=== PATIENT | male | born 1990 | race Caucasian/White ===

== ENCOUNTER 2023-03-29 05:32 | Inpatient (IN) | payer OTHER ==
[~2023-03-29] VITALS: Ht 190.5 cm; Wt 85.3 kg
[2023-03-29 06:30] LABS: BASOPHILS % (AUTO) 0.2 % (0.0-2.0); EOSINOPHILS % (AUTO) 0.1 % (1.0-6.0); HEMATOCRIT 28.2 % (41-53); HEMOGLOBIN 9.5 g/dL (13.5-17.5); LYMPHOCYTES # (AUTO) 0.4 K/uL (1.0-4.8); LYMPHOCYTES % (AUTO) 2.4 % (22.0-44.0); MEAN CORPUSCULAR HEMOGLOBIN 31.9 pg (26.0-34.0); MEAN CORPUSCULAR HGB CONC 33.8 G/dL (31.0-37.0); MEAN CORPUSCULAR VOLUME 94 fL (80-100); MONOCYTES # (AUTO) 0.9 K/uL (0.1-1.0); MONOCYTES % (AUTO) 5.1 % (2.0-9.0); NEUTROPHILS # (AUTO) 16.1 K/uL (1.8-7.7); PLATELET COUNT (AUTO) 138 K/uL (150-450); RED BLOOD CELL COUNT(AUTO) 2.98 MIL/uL (4.50-5.90); RED CELL DISTRIBUTION WIDTH 14.7 % (11.5-14.5)
[2023-03-29 06:42] LABS: NEUTROPHILS % (AUTO) 92.2 % (40.0-70.0)
[2023-03-29 06:48] LABS: ALANINE AMINOTRANSFERASE 107 U/L (12-78); ALBUMIN 3.4 g/dL (3.4-5.0); ALKALINE PHOSPHATASE 122 U/L (46-116); ANION GAP 15 mmol/L (8-16); ASPARTATE AMINOTRANSFERASE 215 U/L (15-37); BILIRUBIN,TOTAL 1.6 mg/dL (0.1-1.0); CALCIUM, TOTAL 8.4 mg/dL (8.8-10.5); CARBON DIOXIDE 29 mmol/L (22-29); CHLORIDE 87 mmol/L (98-107); CREATININE 1.14 mg/dL (0.60-1.30); GLOMERULAR FILTR. RATE CALC > 60 mL/min (>60); GLUCOSE,RANDOM 66 mg/dL (70-110); SODIUM SERUM 131 mmol/L (136-145); TOTAL PROTEIN, SERUM 7.3 g/dL (6.4-8.2)
[2023-03-29 06:53] LABS: POTASSIUM 2.9 mmol/L (3.5-5.1)
[2023-03-29] MEDS ORDERED: LORazepam 2 MG/ML VIAL IVP ONE ×2 (07:00→10:15)
[2023-03-29] MEDS ORDERED: POTASSIUM CHLORIDE 40 MEQ in SODIUM CHLORIDE 0.9% 1,000 ML IV ONE ×2 (07:00→18:45)
[2023-03-29] MEDS ORDERED: MAGNESIUM SULFATE 2 GM, MVI, ADULT NO.1 WITH VIT K 10 ML, THIAMINE 100 MG, FOLIC ACID 1... IV ONE ×5 (07:30)
[2023-03-29 07:43] LABS: AMPHET/METH SCREEN,URINE NEGATIVE (NEGATIVE); BARBITURATE SCREEN, URINE NEGATIVE (NEGATIVE); BENZODIAZEPINES SCREEN,URINE NEGATIVE (NEGATIVE); CANNABINOID SCREEN,URINE NEGATIVE (NEGATIVE); COCAINE SCREEN,URINE NEGATIVE (NEGATIVE); METHADONE SCREEN, URINE NEGATIVE (NEGATIVE); OPIATE SCREEN,URINE NEGATIVE (NEGATIVE); PHENCYCLIDINE SCREEN,URINE NEGATIVE (NEGATIVE)
[2023-03-29] MEDS ORDERED: DiphenhydrAMINE HCL 25 MG CAPSULE PO ONE (10:30)
[2023-03-29] MEDS ORDERED: HALOPERIDOL 5 MG TABLET PO ONE (10:30)
[2023-03-29] MEDS ORDERED: DIAZEPAM 5 MG/ML 2 ML SYRINGE IVP ONE (12:00)
[2023-03-29 12:42] LABS: COVID AG,FIA SOURCE NASAL SWAB
[2023-03-29] MEDS ORDERED: SODIUM CHLORIDE 0.9% 1,000 ML IV ONE (13:00)
[2023-03-29 14:57] LABS: ABG BASE EXCESS 0.9 mmol/L (-2.0-3.0); ABG CARBOXYHEMOGLOBIN 0.8 % (0.0-1.5); ABG HCO3 25.5 mmol/L (22.0-26.0); ABG METHEMOGLOBIN 0.2 % (0.0-1.5); ABG OXYGEN CONTENT 12.5 mL/dL (15.0-23.0); ABG OXYGEN SATURATION 93.9 % (95.0-98.0); ABG PCO2 33 mmHg (35-45); ABG PH 7.484 (7.350-7.450); ABG TOTAL HEMOGLOBIN 9.5 G/dL (12.0-18.0); PO2, ARTERIAL BG 79.5 mmHg (92.0-100.0); SITE, BLOOD GAS RT BRACHIAL; SOURCE, BLOOD GAS ARTERIAL; TEMPERATURE, FAHRENHEIT, BG 99.5 FAHREN (96.0-98.6)
[2023-03-29 14:58] LABS: O2 DEVICE,BLOOD GAS ROOM AIR (ROOM AIR)
[2023-03-29 15:22] LABS: INR 1.1 (0.9-1.1); PROTHROMBIN TIME 11.5 SEC (9.4-11.6)
[2023-03-29 15:51] LABS: APPEARANCE,URINE CLEAR (CLEAR); BILIRUBIN,URINE NEGATIVE (NEGATIVE); GLUCOSE, URINE (UA) NEGATIVE (NEGATIVE); KETONES,URINE 40-60 mg/dL (NEGATIVE); LEUKOCYTE ESTERASE ,URINE NEGATIVE (NEGATIVE); NITRATE,URINE NEGATIVE (NEGATIVE); OCCULT BLOOD,URINE TRACE (NEGATIVE); PROTEIN,URINE 30-70 mg/dL (NEGATIVE); SPECIFIC GRAVITIY, URINE 1.028 (1.003-1.030); UROBILINOGEN,URINE <=1.0 mg/dL (<=1.0)
[2023-03-29 16:06] LABS: BACTERIA,URINE Rare /HPF (None Seen); WBC,URINE 0-2 /HPF (0-5)
[2023-03-29 16:07] LABS: SQUAMOUS EPITHELIAL CELL,UR Rare /LPF (None Seen)
[2023-03-29] MEDS ORDERED: DEXMEDETOMIDINE HCL 400 MCG in SODIUM CHLORIDE 0.9% 96 ML IV PRN (16:45)
[2023-03-29] MEDS ORDERED: MAGNESIUM HYDROXIDE SUSPENSION 30 ML UDCUP PO PRN (18:00)
[2023-03-29] MEDS ORDERED: HYDROCODONE/ACETAMINOPHEN 5-325 MG TABLET PO PRN (18:00)
[2023-03-29] MEDS ORDERED: MORPHINE SULFATE 2 MG/ML SYRINGE IVP PRN (18:00)
[2023-03-29] MEDS ORDERED: MAGNESIUM SULFATE 4 GM/WATER 100 ML IV PRN (18:00)
[2023-03-29] MEDS ORDERED: MAGNESIUM OXIDE 400 MG TABLET PO PRN (18:00)
[2023-03-29] MEDS ORDERED: ONDANSETRON HCL 4 MG/2 ML VIAL IVP PRN (18:00)
[2023-03-29] MEDS ORDERED: MAGNESIUM SULFATE 2 GM/WATER 50 ML IV PRN (18:00)
[2023-03-29] MEDS ORDERED: BISACODYL 10 MG RECTAL RECTAL SUPPOSITORY PR PRN (18:00)
[2023-03-29] MEDS ORDERED: ALBUTEROL SULFATE 2.5 MG/0.5 ML NEB SOLUTION NEB PRN (18:00)
[2023-03-29] MEDS ORDERED: ACETAMINOPHEN 325 MG TABLET PO PRN (18:00)
[2023-03-29] MEDS ORDERED: POTASSIUM CHLORIDE 20 MEQ ER TABLET PO PRN (18:00)
[2023-03-29] MEDS ORDERED: IPRATROPIUM BROMIDE 0.5 MG/2.5 ML NEB SOLUTION NEB PRN (18:00)
[2023-03-29] MEDS ORDERED: ZOLPIDEM TARTRATE 5 MG TABLET PO PRN (18:00)
[2023-03-29 18:18] LABS: LACTIC ACID 0.5 mmol/L (0.4-2.0)
[2023-03-29 18:27] LABS: ALANINE AMINOTRANSFERASE 90 U/L (12-78); ALBUMIN 2.7 g/dL (3.4-5.0); ALKALINE PHOSPHATASE 113 U/L (46-116); ANION GAP 13 mmol/L (8-16); ASPARTATE AMINOTRANSFERASE 158 U/L (15-37); CALCIUM, TOTAL 7.9 mg/dL (8.8-10.5); CARBON DIOXIDE 27 mmol/L (22-29); CHLORIDE 94 mmol/L (98-107); GLOMERULAR FILTR. RATE CALC > 60 mL/min (>60); GLUCOSE,RANDOM 69 mg/dL (70-110); SODIUM SERUM 134 mmol/L (136-145); TOTAL PROTEIN, SERUM 6.7 g/dL (6.4-8.2)
[2023-03-29 18:29] LABS: POTASSIUM 2.6 mmol/L (3.5-5.1)
[2023-03-29] MEDS: POTASSIUM CHL 10 MEQ/WATER 50 ML IV PRN ×4 (18:49→22:48)
[2023-03-29] MEDS: SODIUM CHLORIDE 0.9% 1,000 ML IV SCH (18:49)
[2023-03-29] MEDS: DIAZEPAM 5 MG/ML 2 ML SYRINGE IVP SCH ×2 (19:41→23:38)
[2023-03-29 20:00] VITALS: BP 132/58; PULSE 78; RESP 17; TEMP 100.5
[2023-03-29] MEDS: DOCUSATE SODIUM 100 MG CAPSULE PO SCH (21:00)
[2023-03-29] MEDS ORDERED: SODIUM CHLORIDE 0.9% 250 ML IV ONE (21:20)
[2023-03-29] MEDS: 1: MAGNESIUM SULFATE 2 GM, MVI, ADULT NO.1 WITH VIT K 10 ML, THIAMINE 100 MG, FOLIC ACID IV SCH ×5 (21:27)
[2023-03-29] MEDS: HEPARIN SODIUM,PORCINE 5,000 UNITS/ML VIAL SQ SCH (23:38)
[2023-03-30] VITALS (7 sets, daily range): BP systolic 122–142; BP diastolic 42–103; PULSE 77–101; RESP 13–45; TEMP 98.6–99.9
[2023-03-30] MEDS: DIAZEPAM 5 MG/ML 2 ML SYRINGE IVP PRN ×2 (01:47→05:35)
[2023-03-30] MEDS: DIAZEPAM 5 MG/ML 2 ML SYRINGE IVP SCH ×2 (03:46→08:00)
[2023-03-30 05:21] LABS: BASOPHILS % (AUTO) 0.6 % (0.0-2.0); EOSINOPHILS % (AUTO) 0.3 % (1.0-6.0); HEMATOCRIT 29.4 % (41-53); HEMOGLOBIN 9.5 g/dL (13.5-17.5); LYMPHOCYTES # (AUTO) 0.6 K/uL (1.0-4.8); LYMPHOCYTES % (AUTO) 3.3 % (22.0-44.0); MEAN CORPUSCULAR HEMOGLOBIN 31.5 pg (26.0-34.0); MEAN CORPUSCULAR HGB CONC 32.4 G/dL (31.0-37.0); MEAN CORPUSCULAR VOLUME 97 fL (80-100); MONOCYTES # (AUTO) 1.1 K/uL (0.1-1.0); MONOCYTES % (AUTO) 5.8 % (2.0-9.0); NEUTROPHILS # (AUTO) 16.4 K/uL (1.8-7.7); PLATELET COUNT (AUTO) 151 K/uL (150-450); RED BLOOD CELL COUNT(AUTO) 3.03 MIL/uL (4.50-5.90); RED CELL DISTRIBUTION WIDTH 15.1 % (11.5-14.5)
[2023-03-30 05:36] LABS: ALANINE AMINOTRANSFERASE 65 U/L (12-78); ALBUMIN 2.4 g/dL (3.4-5.0); ALKALINE PHOSPHATASE 105 U/L (46-116); ANION GAP 12 mmol/L (8-16); ASPARTATE AMINOTRANSFERASE 127 U/L (15-37); BILIRUBIN,TOTAL 1.1 mg/dL (0.1-1.0); CALCIUM, TOTAL 7.9 mg/dL (8.8-10.5); CARBON DIOXIDE 25 mmol/L (22-29); CHLORIDE 97 mmol/L (98-107); CREATININE 0.57 mg/dL (0.60-1.30); GLOMERULAR FILTR. RATE CALC > 60 mL/min (>60); GLUCOSE,RANDOM 67 mg/dL (70-110); SODIUM SERUM 134 mmol/L (136-145); TOTAL PROTEIN, SERUM 6.2 g/dL (6.4-8.2)
[2023-03-30 05:40] LABS: POTASSIUM 2.8 mmol/L (3.5-5.1)
[2023-03-30] MEDS: POTASSIUM CHL 10 MEQ/WATER 50 ML IV PRN ×7 (05:44→19:43)
[2023-03-30] MEDS: SODIUM CHLORIDE 0.9% 1,000 ML IV SCH (07:50)
[2023-03-30] MEDS: HEPARIN SODIUM,PORCINE 5,000 UNITS/ML VIAL SQ SCH ×3 (08:00→23:54)
[2023-03-30] MEDS: PANTOPRAZOLE SODIUM 40 MG/VIAL IVP SCH (08:01)
[2023-03-30] MEDS: DOCUSATE SODIUM 100 MG CAPSULE PO SCH ×2 (08:02→19:57)
[2023-03-30] MEDS: 1: MAGNESIUM SULFATE 2 GM, MVI, ADULT NO.1 WITH VIT K 10 ML, THIAMINE 100 MG, FOLIC ACID IV SCH ×5 (09:33)
[2023-03-30] MEDS ORDERED: LORazepam 2 MG/ML VIAL IVP PRN (10:30)
[2023-03-30] MEDS: ChlordiazePOXIDE HCL 10 MG CAPSULE PO SCH ×2 (16:00→23:54)
[2023-03-31] VITALS (9 sets, daily range): BP systolic 128–176; BP diastolic 62–103; PULSE 77–110; RESP 16–30; TEMP 98.1–99.5
[2023-03-31 05:46] LABS: ANION GAP 6 mmol/L (8-16); CALCIUM, TOTAL 8.8 mg/dL (8.8-10.5); CARBON DIOXIDE 28 mmol/L (22-29); CHLORIDE 99 mmol/L (98-107); CREATININE 0.51 mg/dL (0.60-1.30); GLOMERULAR FILTR. RATE CALC > 60 mL/min (>60); GLUCOSE,RANDOM 136 mg/dL (70-110); SODIUM SERUM 133 mmol/L (136-145)
[2023-03-31 05:47] LABS: BASOPHILS % (AUTO) 0.5 % (0.0-2.0); HEMATOCRIT 27.6 % (41-53); HEMOGLOBIN 8.9 g/dL (13.5-17.5); LYMPHOCYTES # (AUTO) 0.9 K/uL (1.0-4.8); LYMPHOCYTES % (AUTO) 6.7 % (22.0-44.0); MEAN CORPUSCULAR HEMOGLOBIN 31.1 pg (26.0-34.0); MEAN CORPUSCULAR HGB CONC 32.3 G/dL (31.0-37.0); MEAN CORPUSCULAR VOLUME 96 fL (80-100); MONOCYTES % (AUTO) 8.1 % (2.0-9.0); NEUTROPHILS # (AUTO) 10.8 K/uL (1.8-7.7); NEUTROPHILS % (AUTO) 83.7 % (40.0-70.0); PLATELET COUNT (AUTO) 174 K/uL (150-450); RED BLOOD CELL COUNT(AUTO) 2.87 MIL/uL (4.50-5.90); RED CELL DISTRIBUTION WIDTH 14.8 % (11.5-14.5)
[2023-03-31] MEDS: POTASSIUM CHL 10 MEQ/WATER 50 ML IV PRN ×4 (05:53→11:52)
[2023-03-31] MEDS ORDERED: LORazepam 2 MG/ML VIAL IVP PRN (07:45)
[2023-03-31] MEDS: ChlordiazePOXIDE HCL 10 MG CAPSULE PO SCH ×2 (08:52→16:35)
[2023-03-31] MEDS: PANTOPRAZOLE SODIUM 40 MG/VIAL IVP SCH (08:52)
[2023-03-31] MEDS: HEPARIN SODIUM,PORCINE 5,000 UNITS/ML VIAL SQ SCH ×2 (08:52→16:35)
[2023-03-31] MEDS: DOCUSATE SODIUM 100 MG CAPSULE PO SCH ×2 (08:52→19:48)
[2023-03-31] MEDS ORDERED: MULTIVITAMINS WITH MINERALS, THERAPEUTIC TABLET PO SCH (09:00)
[2023-04-01 00:03] VITALS: BP 133/81; PULSE 85; RESP 17; TEMP 99.2
[2023-04-01] MEDS: HEPARIN SODIUM,PORCINE 5,000 UNITS/ML VIAL SQ SCH (00:10)
[2023-04-01] MEDS: ChlordiazePOXIDE HCL 10 MG CAPSULE PO SCH (00:10)
[2023-04-01 04:04] VITALS: BP 131/90; PULSE 92; RESP 19; TEMP 98.9
== END 2023-04-01 05:47 | disposition left against medical advice (07) | DRG 52 ==
LOC: EMS 05:32 → ICU 18:26 → 5S 03-31 16:41
PROVIDERS: ADMIT Hospitalist; ATTEND Hospitalist
DX: G92.9 Unspecified toxic encephalopathy (principal); F10.231 Alcohol dependence with withdrawal delirium; M62.82 Rhabdomyolysis; E44.0 Moderate protein-calorie malnutrition; E87.1 Hypo-osmolality and hyponatremia; D63.8 Anemia in other chronic diseases classified elsewhere; E87.6 Hypokalemia; F12.90 Cannabis use, unspecified, uncomplicated; F32.A Depression, unspecified; Z20.822 Contact with and (suspected) exposure to COVID-19; F90.9 Attention-deficit hyperactivity disorder, unspecified type; I10 Essential (primary) hypertension; F20.9 Schizophrenia, unspecified; Z53.29 Procedure and treatment not carried out because of patient's decision for other reasons; F17.210 Nicotine dependence, cigarettes, uncomplicated; Z78.1 Physical restraint status; Z68.23 Body mass index [BMI] 23.0-23.9, adult
CPT/HCPCS: 36600; 70450; 71045; 80048; 80053; 80307; 81001; 82140; 82550; 82805; 83605; 83735; 84132; 84145; 85025; 85610; 85730; 87040; 87081; 93005; 99291; C9113; G0378; G0480; J1644; J2060; J3411; J3475; J3480; J3490; J7030; J7050; Q9967; 36415-L1; 36415-TC

== ENCOUNTER 2023-05-19 02:26 | Inpatient (IN) | payer MEDICAID, OTHER ==
[~2023-05-19] VITALS: Ht 190.5 cm; Wt 79.8 kg
[2023-05-19] MEDS ORDERED: HALOPERIDOL LACTATE 5 MG/ML VIAL IM ONE (03:15)
[2023-05-19] MEDS ORDERED: LORazepam 2 MG/ML VIAL IM ONE (03:15)
[2023-05-19] MEDS ORDERED: DiphenhydrAMINE HCL 50 MG/ML VIAL IM ONE (03:15)
[2023-05-19 03:45] LABS: AMPHET/METH SCREEN,URINE NEGATIVE (NEGATIVE); BARBITURATE SCREEN, URINE NEGATIVE (NEGATIVE); BENZODIAZEPINES SCREEN,URINE NEGATIVE (NEGATIVE); CANNABINOID SCREEN,URINE NEGATIVE (NEGATIVE); COCAINE SCREEN,URINE NEGATIVE (NEGATIVE); METHADONE SCREEN, URINE NEGATIVE (NEGATIVE); OPIATE SCREEN,URINE NEGATIVE (NEGATIVE); PHENCYCLIDINE SCREEN,URINE NEGATIVE (NEGATIVE)
[2023-05-19] MEDS ORDERED: HALOPERIDOL 5 MG TABLET PO PRN (03:45)
[2023-05-19] MEDS ORDERED: ZOLPIDEM TARTRATE 10 MG TABLET PO PRN (03:45)
[2023-05-19 04:01] LABS: BASOPHILS % (AUTO) 0.6 % (0.0-2.0); EOSINOPHILS % (AUTO) 1.9 % (1.0-6.0); HEMATOCRIT 32.5 % (41-53); HEMOGLOBIN 10.7 g/dL (13.5-17.5); LYMPHOCYTES # (AUTO) 2.1 K/uL (1.0-4.8); LYMPHOCYTES % (AUTO) 28.5 % (22.0-44.0); MEAN CORPUSCULAR HEMOGLOBIN 29.2 pg (26.0-34.0); MEAN CORPUSCULAR VOLUME 88 fL (80-100); MONOCYTES # (AUTO) 0.4 K/uL (0.1-1.0); MONOCYTES % (AUTO) 5.4 % (2.0-9.0); NEUTROPHILS # (AUTO) 4.7 K/uL (1.8-7.7); NEUTROPHILS % (AUTO) 63.6 % (40.0-70.0); PLATELET COUNT (AUTO) 242 K/uL (150-450); RED BLOOD CELL COUNT(AUTO) 3.67 MIL/uL (4.50-5.90); RED CELL DISTRIBUTION WIDTH 17.7 % (11.5-14.5)
[2023-05-19 04:09] LABS: ANION GAP 15 mmol/L (8-16); CALCIUM, TOTAL 8.6 mg/dL (8.8-10.5); CARBON DIOXIDE 26 mmol/L (22-29); CHLORIDE 99 mmol/L (98-107); GLOMERULAR FILTR. RATE CALC > 60 mL/min (>60); GLUCOSE,RANDOM 90 mg/dL (70-110); POTASSIUM 3.4 mmol/L (3.5-5.1); SODIUM SERUM 140 mmol/L (136-145)
[2023-05-19 04:15] LABS: ALANINE AMINOTRANSFERASE 58 U/L (12-78); ALBUMIN 3.8 g/dL (3.4-5.0); ALKALINE PHOSPHATASE 77 U/L (46-116); ASPARTATE AMINOTRANSFERASE 104 U/L (15-37); BILIRUBIN,TOTAL 0.4 mg/dL (0.1-1.0); TOTAL PROTEIN, SERUM 7.4 g/dL (6.4-8.2)
[2023-05-19 04:36] LABS: COVID AG,FIA SOURCE NASOPHARYNGEAL
[2023-05-19] MEDS ORDERED: SODIUM CHLORIDE 0.9% 1,000 ML ONE ×2 (05:07→06:32)
[2023-05-19 08:21] LABS: APPEARANCE,URINE CLEAR (CLEAR); BILIRUBIN,URINE NEGATIVE (NEGATIVE); GLUCOSE, URINE (UA) NEGATIVE (NEGATIVE); KETONES,URINE NEGATIVE (NEGATIVE); LEUKOCYTE ESTERASE ,URINE NEGATIVE (NEGATIVE); NITRATE,URINE NEGATIVE (NEGATIVE); OCCULT BLOOD,URINE NEGATIVE (NEGATIVE); PH,URINE 5.5 (5.0-8.0); PROTEIN,URINE NEGATIVE (NEGATIVE); SPECIFIC GRAVITIY, URINE 1.006 (1.003-1.030); UROBILINOGEN,URINE <=1.0 mg/dL (<=1.0)
[2023-05-19] MEDS: LORazepam 2 MG TABLET PO PRN (23:42)
[2023-05-20] VITALS (13 sets, daily range): BP systolic 105–139; BP diastolic 59–84; PULSE 64–109; RESP 17–19; TEMP 97.5–98.5; O2SAT 95–100
[2023-05-20] MEDS: LORazepam 2 MG TABLET PO PRN (07:10)
[2023-05-20 08:15] LABS: APPEARANCE,URINE CLEAR (CLEAR); BILIRUBIN,URINE NEGATIVE (NEGATIVE); GLUCOSE, URINE (UA) NEGATIVE (NEGATIVE); KETONES,URINE NEGATIVE (NEGATIVE); LEUKOCYTE ESTERASE ,URINE NEGATIVE (NEGATIVE); NITRATE,URINE NEGATIVE (NEGATIVE); OCCULT BLOOD,URINE NEGATIVE (NEGATIVE); PROTEIN,URINE TRACE mg/dL (NEGATIVE); SPECIFIC GRAVITIY, URINE 1.016 (1.003-1.030); UROBILINOGEN,URINE <=1.0 mg/dL (<=1.0)
[2023-05-20] MEDS ORDERED: ChlordiazePOXIDE HCL 25 MG CAPSULE PO PRN (10:15)
[2023-05-20] MEDS: ChlordiazePOXIDE HCL 25 MG CAPSULE PO PRN ×3 (10:45→20:19)
[2023-05-20] MEDS: RisperiDONE 2 MG TABLET PO SCH (16:17)
[2023-05-21 01:04] VITALS: BP 119/69; PULSE 61; RESP 18; TEMP 97.6; O2SAT 98
[2023-05-21 05:10] VITALS: BP 125/74; PULSE 69; RESP 18; TEMP 97.8; O2SAT 98
[2023-05-21] MEDS ORDERED: ChlordiazePOXIDE HCL 25 MG CAPSULE PO PRN ×2 (07:00)
[2023-05-21 08:20] VITALS: BP 107/72; PULSE 94; RESP 18; TEMP 97.3; O2SAT 98
[2023-05-21] MEDS: ChlordiazePOXIDE HCL 25 MG CAPSULE PO SCH ×4 (08:31→21:03)
[2023-05-21] MEDS: RisperiDONE 2 MG TABLET PO SCH ×2 (08:31→16:22)
[2023-05-21] MEDS ORDERED: ChlordiazePOXIDE HCL 25 MG CAPSULE PO SCH (09:00)
[2023-05-21 10:30] VITALS: BP 112/75; PULSE 87; RESP 18; TEMP 98.1; O2SAT 98
[2023-05-21 21:18] VITALS: BP 127/79; PULSE 75; RESP 18; TEMP 97.5; O2SAT 100
[2023-05-22] MEDS: RisperiDONE 2 MG TABLET PO SCH (08:10)
[2023-05-22] MEDS: ChlordiazePOXIDE HCL 25 MG CAPSULE PO SCH (08:10)
[2023-05-22] MEDS ORDERED: RISP2TAB86 PO ×2 (08:42→08:46)
[2023-05-23] MEDS ORDERED: ChlordiazePOXIDE HCL 10 MG CAPSULE PO PRN ×2 (07:00)
[2023-05-23] MEDS ORDERED: ChlordiazePOXIDE HCL 10 MG CAPSULE PO SCH ×2 (09:00)
[2023-05-24] MEDS ORDERED: ChlordiazePOXIDE HCL 10 MG CAPSULE PO PRN ×2 (07:00)
== END 2023-05-22 11:58 | disposition home or self-care (01) | DRG 750 ==
LOC: EMS 02:27 → B2S 18:05
PROVIDERS: ADMIT Psychiatry & Neurology Psychiatry; ATTEND Psychiatry & Neurology Psychiatry
DX: F25.1 Schizoaffective disorder, depressive type (principal); R45.851 Suicidal ideations; F10.229 Alcohol dependence with intoxication, unspecified; I10 Essential (primary) hypertension; F41.9 Anxiety disorder, unspecified; Z20.822 Contact with and (suspected) exposure to COVID-19; G47.00 Insomnia, unspecified; K59.00 Constipation, unspecified; K21.9 Gastro-esophageal reflux disease without esophagitis; F90.9 Attention-deficit hyperactivity disorder, unspecified type; Z87.891 Personal history of nicotine dependence
CPT/HCPCS: 80053; 80307; 81003; 85025; 99291; G0480; J1200; J1630; J2060; J7030